=== PATIENT | male | born 1940 | race African-American/Black ===

== ENCOUNTER 2025-07-17 15:37 | Inpatient (IN) | payer OTHER ==
[2025-07-17] MEDS ORDERED: Dextrose 50% Abboject 50 ML SYRINGE SLOW IVP PRN (16:41)
[2025-07-17] MEDS ORDERED: Glucagon 1 MG/ML KIT IM PRN (16:41)
[2025-07-17] MEDS ORDERED: Senokot S 8.6-50 MG TAB PO PRN (16:45)
[2025-07-17] MEDS ORDERED: Ondansetron PF 4 MG/2 ML Vial IVP PRN (16:45)
[2025-07-17 17:34] LABS: Magnesium 2.2 mg/dL (1.6-2.6)
[2025-07-17 17:58] LABS: HBSAB Concentration 355.98 mIU/mL; Hep B Core Total Ab NONREACTIVE (NonReactive); Hep B Core Total Index 0.47 S/CO (0-0.79); Hep B Surf Ag NONREACTIVE S/CO (NonReactive); Hep C IgG Ab NONREACTIVE S/CO (NonReactive); Hep C Index 0.26 S/CO (0-0.79)
[2025-07-17] MEDS ORDERED: Albuterol 2.5 MG (3 mL) NEB NEB PRN (18:03)
[2025-07-18] MEDS: Acetaminophen 325 MG TAB PO PRN (00:03)
[2025-07-18 04:52] LABS: #Basophils 0.04 10x3/uL (0.0-0.2); #Eosinophils 0.21 10x3/uL (0.0-0.7); #Monocytes 0.51 10x3/uL (0.11-0.59); #Neutrophils 3.58 10x3/uL (1.40-6.50); %Basophils 0.8 % (0.0-1.0); %Eosinophils 4.3 % (0.0-10.0); %Lymphocytes 11.9 % (21.0-51.0); %Monocytes 10.3 % (0.0-10.0); %Neutrophils 72.5 % (42.0-75.0); Hematocrit 22.4 % (42.0-52.0); Hemoglobin 7.5 g/dL (14.0-18.0); Mean Corpuscular Hemoglobin 29.9 pg (27.0-31.0); Mean Corpuscular Volume 89.2 fL (78.0-98.0); Platelet Count 237 10x3/uL (130-400); Red Blood Cell (RBC) Count 2.51 mill/uL (4.70-6.10); White Blood Cell (WBC) Count 4.94 10x3/uL (4.8-10.8)
[2025-07-18 05:13] LABS: ALT (SGPT) Less than 7 U/L (Less than 45); AST (SGOT) 26 U/L (11-34); Albumin 2.2 g/dL (3.1-4.5); Alkaline Phosphatase 61 U/L (40-110); Anion Gap 9 mmol/L (10-20); BUN (Urea Nitrogen) 16 mg/dL (8.4-25.7); Bilirubin, Total 0.4 mg/dL (0.3-1.2); Calc. Creatinine Clearance 6 mL/min (70-130); Calcium 8.1 mg/dL (7.8-10.44); Carbon Dioxide 27 mmol/L (23-31); Chloride 100 mmol/L (98-107); Globulin 4.3 g/dL (2.4-3.5); Glucose 68 mg/dL (83-110); Potassium 3.2 mmol/L (3.5-5.1); Sodium 133 mmol/L (136-145)
[2025-07-18] MEDS: Aspirin 81 mg Enteric Coated Tablet PO SCH (10:49)
[2025-07-18] MEDS: Finasteride 5 MG TAB PO SCH (10:50)
[2025-07-18] MEDS: Metoprolol Succinate XL 25 MG ER.TAB PO SCH (10:56)
[2025-07-18] MEDS: Losartan 25 MG TAB PO SCH (10:56)
[2025-07-19 04:32] LABS: #Basophils 0.04 10x3/uL (0.0-0.2); #Eosinophils 0.21 10x3/uL (0.0-0.7); #Monocytes 0.60 10x3/uL (0.11-0.59); #Neutrophils 4.03 10x3/uL (1.40-6.50); %Basophils 0.7 % (0.0-1.0); %Eosinophils 3.9 % (0.0-10.0); %Lymphocytes 9.3 % (21.0-51.0); %Monocytes 11.1 % (0.0-10.0); %Neutrophils 74.6 % (42.0-75.0); Hematocrit 23.2 % (42.0-52.0); Hemoglobin 7.6 g/dL (14.0-18.0); Mean Corpuscular Hemoglobin 29.1 pg (27.0-31.0); Mean Corpuscular Volume 88.9 fL (78.0-98.0); Platelet Count 223 10x3/uL (130-400); Red Blood Cell (RBC) Count 2.61 mill/uL (4.70-6.10); White Blood Cell (WBC) Count 5.40 10x3/uL (4.8-10.8)
[2025-07-19 04:43] LABS: Anion Gap 10 mmol/L (10-20); BUN (Urea Nitrogen) 12 mg/dL (8.4-25.7); Calc. Creatinine Clearance 16 mL/min (70-130); Calcium 8.2 mg/dL (7.8-10.44); Carbon Dioxide 32 mmol/L (23-31); Chloride 101 mmol/L (98-107); Glucose 96 mg/dL (83-110); Potassium 2.8 mmol/L (3.5-5.1); Sodium 140 mmol/L (136-145)
[2025-07-19] MEDS: EPOETIN ALFA-EPBX (ESRD) 10,000 UNITS/ML VIAL SC SCH (13:46)
[2025-07-20 05:11] VITALS: BMI 23.8
[2025-07-20 05:29] LABS: #Basophils 0.03 10x3/uL (0.0-0.2); #Eosinophils 0.24 10x3/uL (0.0-0.7); #Monocytes 0.60 10x3/uL (0.11-0.59); #Neutrophils 4.54 10x3/uL (1.40-6.50); %Basophils 0.5 % (0.0-1.0); %Eosinophils 3.9 % (0.0-10.0); %Lymphocytes 11.3 % (21.0-51.0); %Monocytes 9.8 % (0.0-10.0); %Neutrophils 74.2 % (42.0-75.0); Hematocrit 23.4 % (42.0-52.0); Hemoglobin 8.3 g/dL (14.0-18.0); Mean Corpuscular Hemoglobin 31.7 pg (27.0-31.0); Mean Corpuscular Volume 89.3 fL (78.0-98.0); Platelet Count 232 10x3/uL (130-400); Red Blood Cell (RBC) Count 2.62 mill/uL (4.70-6.10); White Blood Cell (WBC) Count 6.12 10x3/uL (4.8-10.8)
[2025-07-20 05:48] LABS: Anion Gap 15 mmol/L (10-20); BUN (Urea Nitrogen) 11 mg/dL (8.4-25.7); Calc. Creatinine Clearance 15 mL/min (70-130); Calcium 8.7 mg/dL (7.8-10.44); Carbon Dioxide 31 mmol/L (23-31); Chloride 99 mmol/L (98-107); Glucose 96 mg/dL (83-110); Potassium 3.6 mmol/L (3.5-5.1); Sodium 141 mmol/L (136-145)
[2025-07-20] MEDS: Memantine 5 MG TAB PO SCH (20:11)
[2025-07-21 04:29] LABS: Hematocrit 24.8 % (42.0-52.0); Hemoglobin 8.0 g/dL (14.0-18.0)
[2025-07-22 15:25] VITALS: BP 146/66; TEMP 98.2
== END 2025-07-22 16:18 | disposition home health service (06) | DRG 640 ==
LOC: 2SE 15:37
PROVIDERS: ADMIT Internal Medicine; ATTEND Family Medicine
PROC: 5A1D70Z Performance of Urinary Filtration, Intermittent, Less than 6 Hours Per Day (ICD-10-PCS; principal; 2025-07-18)
DX: E87.79 Other fluid overload (principal); G93.41 Metabolic encephalopathy; N18.6 End stage renal disease; I13.2 Hypertensive heart and chronic kidney disease with heart failure and with stage 5 chronic kidney disease, or end stage renal disease; E78.5 Hyperlipidemia, unspecified; I50.9 Heart failure, unspecified; J44.9 Chronic obstructive pulmonary disease, unspecified; F03.90 Unspecified dementia, unspecified severity, without behavioral disturbance, psychotic disturbance, mood disturbance, and anxiety; I25.2 Old myocardial infarction; E11.40 Type 2 diabetes mellitus with diabetic neuropathy, unspecified; Z99.2 Dependence on renal dialysis; N40.0 Benign prostatic hyperplasia without lower urinary tract symptoms; Z89.512 Acquired absence of left leg below knee; Z89.422 Acquired absence of other left toe(s); Z95.818 Presence of other cardiac implants and grafts; Z95.0 Presence of cardiac pacemaker; Z98.890 Other specified postprocedural states; Z82.3 Family history of stroke; Z81.8 Family history of other mental and behavioral disorders; Z87.891 Personal history of nicotine dependence; Z99.3 Dependence on wheelchair; E87.6 Hypokalemia; E11.22 Type 2 diabetes mellitus with diabetic chronic kidney disease; E03.9 Hypothyroidism, unspecified; I73.9 Peripheral vascular disease, unspecified; Z98.61 Coronary angioplasty status; E83.39 Other disorders of phosphorus metabolism; I25.118 Atherosclerotic heart disease of native coronary artery with other forms of angina pectoris; R09.02 Hypoxemia; Z79.51 Long term (current) use of inhaled steroids; D63.1 Anemia in chronic kidney disease; R09.89 Other specified symptoms and signs involving the circulatory and respiratory systems; Z95.9 Presence of cardiac and vascular implant and graft, unspecified
CPT/HCPCS: 36415; 36416; 51701; 70450; 71045; 80048; 80053; 80306; 80307; 81001; 82140; 83690; 83735; 84100; 84439; 84443; 84484; 85014; 85018; 85025; 86704; 86706; 86803; 87340; 90935; 93005; 93010; 94760; 95819; 96374; 96375; G0257; J2310; Q5105